=== PATIENT | female | born 2000 | race Hispanic/Latino ===

== ENCOUNTER 2023-01-06 08:57 | Emergency (ER) | payer OTHER, SELFPAY ==
[2023-01-06 09:49] VITALS: BP 118/72; PULSE 105; RESP 16; TEMP 37.1; O2SAT 96
[2023-01-06] MEDS: KETOROLAC 30 MG/ML VIAL (*BKC) IM (10:12)
[2023-01-06] MEDS: CLINDAMYCIN HCL 150 MG CAP 450 MG PO (10:12)
[2023-01-06] MEDS: oxyCODONE HCL (*CRX) 5 MG TAB IR PO (10:13)
--- NOTE | 2023-01-06 11:23 | ED.WOUNDLAC ---
HPI - Wound/Laceration General Chief Complaint: Wound/Laceration Stated Complaint: buttocks pain Time Seen by Provider: 01/06/23 09:25 History of Present Illness HPI narrative: 22-year-old female presenting with pain to her lower back/upper buttock, this is happened to her in the past which resolved after few days, but this was much worse. No fevers or chills. Painful to sit. Related Data Allergies Allergy/AdvReac Type Severity Reaction Status Date / Time No Known Allergies Allergy Verified 01/06/23 09:56 Review of Systems Review of Systems: CONST: No fever. HEENT: No sore throat C/V: No chest pain RESP: No cough GI: No nausea : No dysuria. M/S: No joint pain. SKIN: Red painful rash lower back NEURO: [No headache or focal numbness or weakness] PSYCH: [No depression] Exam Narrative: EXAMINATION OF ORGAN SYSTEMS/BODY AREAS: Constitutional: Vital signs per nursing GENERAL: Appears slightly uncomfortable HEAD: Normal with no signs of head trauma. EYES: EOMI, conjunctiva normal ENT: Hearing grossly intact LUNGS: Nonlabored breathing. HEART: [Regular rate and rhythm] ABD: [Soft], [nontender to palpation] EXT: Normal range of motion SKIN: Redness, fluctuance, tenderness midline sacral area NEURO: [Alert and oriented x 3. No gross focal sensory or strength deficits.] PSYCH: Normal affect Course Vital Signs Vital signs: Vital Signs Temperature 98.7 F 01/06/23 09:49 Pulse Rate 105 H 01/06/23 09:49 Respiratory Rate 16 01/06/23 09:49 Blood Pressure 118/72 01/06/23 09:49 Pulse Oximetry 96 01/06/23 09:49 Oxygen Delivery Room Air 01/06/23 09:49 Temperature 98.7 F 01/06/23 09:49 Pulse Rate 105 H 01/06/23 09:49 Respiratory Rate 16 01/06/23 09:49 Blood Pressure 118/72 01/06/23 09:49 Pulse Oximetry 96 01/06/23 09:49 Oxygen Delivery Room Air 01/06/23 09:49 MDM - Wound/Laceration MDM Narrative Medical decision making narrative: MEDICAL DECISION MAKING AND COURSE IN THE ED WITH INTERPRETATION/REVIEW OF DIAGNOSTIC STUDIES: Electronic medical record was reviewed. Patient presented to the ED with complaint of painful skin rash. Vitals [were within acceptable limits]. Physical exam revealed area of tenderness and induration consistent with pilonidal abscess. I did perform bedside ultrasound which confirmed a large amount of fluid. Incision and drainage was performed here, verbal consent obtained and risks/benefits explained. Skin was cleaned and [2% lidocaine] solution was injected to make a wheal for local anesthesia. A scalpel was used to make a 1cm longitudinal incision 1 cm lateral to midline, and very large amount of purulent discharge was expressed from the incision. There was [minimal] bleeding, patient tolerated procedure [well]. Wound was left open to allow for further drainage. [Patient was given clindamycin here and a course to continue at home.] On reevaluation, she is now feeling much much better. The patient is discharged home in stable condition with follow-up to general surgery. I have asked the patient to return to the emergency department for worsening pain, worsening and increasing size of skin infection, fevers/chills. The patient is instructed to follow up with [PCP] in [2] days. Patient verbalized understanding. Discharge Plan Discharge Clinical Impression: Pilonidal abscess Patient Disposition: Home, Self-Care Condition: Improved Instructions: Antibiotic Form, Pilonidal Cyst (ED), Abscess Incision and Drainage (DC) Additional Instructions: Please follow up with general surgeon; come back if you feel worse. Prescriptions: New clindamycin HCl 300 mg capsule 300 mg PO Q6H 5 Days Qty: 20 0RF Follow-up/Referrals: Tim,NADINE Parson [Primary Care Provider] - Gurinder Gruber DO [Physician] - 2 Days
== END 2023-01-06 11:31 | disposition home or self-care (01) ==
PROVIDERS: Emergency Provider Emergency Medicine; PCP Registered Nurse
DX: L05.01 Pilonidal cyst with abscess (principal)
CPT/HCPCS: 10060; 10080; 96372; 99283; A9270; J1885

== ENCOUNTER 2023-07-19 02:23 | Emergency (ER) | payer OTHER, SELFPAY ==
[2023-07-19] VITALS (7 sets, daily range): BP systolic 106–148; BP diastolic 69–80; PULSE 64–78; RESP 16–20; TEMP 36.4–37.1; O2SAT 98–100
--- NOTE | ~2023-07-19 | US_ITS ---
US right upper quadrant DATE: 07/19/2023 08:34 INDICATION: Right upper quadrant abdominal pain TECHNIQUE: Real-time imaging of liver, pancreas, gallbladder COMPARISON: None FINDINGS: The pancreas is obscured by bowel gas. The common bile duct measures 2.5 mm, normal. There is an approximately 7 mm gallstone. There is gallbladder wall thickening., The wall measuring u p to 3.5 mm thickness. The findings are suggestive of acute cholecystitis. Sonographic Ruggiero sign is negative. Further confirmation of acute cholecystitis isn't desired, consider radionuclide hepatobil iary scan. No hepatic space-occupying mass lesion is evident. Normal hepatopedal portal venous flow direction. IMPRESSION: Cholelithiasis and gallbladder wall thickening, suggesting possible acute cholecystitis Reviewed, dictated and finalized at [facility] Reviewed, dictated and finalized at [facility]
[2023-07-19 03:57] LABS: Basophils Percent Auto 0.4 % (0.2-1.2); Eosinophils Absolute Auto 0.1 K/mm3 (0-0.3); Eosinophils Percent Auto 1.4 % (0-4.4); Hematocrit 42.4 % (37.0-47.0); Hemoglobin 13.2 g/dL (12.0-15.0); Immature Granulocyte Absolute 0.03 K/mm3 (0.00-0.031); Immature Granulocyte Percent A 0.3 % (0-0.5); Lymphocytes Percent Auto 24.4 % (18.3-44.2); Mean Corpuscular HGB Conc 31.1 g/dl (32-36); Mean Corpuscular Hemoglobin 27.3 pg (26-34); Mean Corpuscular Volume 87.6 fl (80-100); Mean Platelet Volume 9.8 fl (7.4-10.4); Monocytes Absolute Auto 0.5 K/mm3 (0.1-0.6); Monocytes Percent Auto 5.1 % (2.6-8.5); Neutrophils Percent Auto 68.4 % (45.5-73.1); Platelet Count Result 267 k/mm3 (150-375); Red Blood Count 4.84 M/mm3 (4.2-5.4); Red Cell Distribution Width 12.5 % (11.5-14.5); White Blood Count 10.2 K/mm3 (4.5-10.0)
[2023-07-19 04:10] LABS: Alanine Aminotransferase 20 U/L (6-35); Albumin Level 4.4 g/dL (3.5-5.1); Alkaline Phosphatase 80 U/L (38-126); Anion Gap 8 mmol/L (8-16); Aspartate Amino Transferase 22 U/L (14-36); Bilirubin,Total 0.4 mg/dL (0.2-1.3); Blood Urea Nitrogen 12 mg/dL (7-17); Calcium 9.1 mg/dL (8.4-10.2); Carbon Dioxide 31 mmol/L (22-30); Chloride 101 mmol/L (98-107); Estimated CRCL calculation 101 ml/min; Estimated Glomerular Filt Rate > 60; Glucose 113 mg/dL (65-110); Potassium 3.9 mmol/L (3.4-5.0); Sodium 140 mmol/L (137-145)
[2023-07-19 04:44] LABS: Appearance Urine Clear (Clear); Bacteria Urine None Seen /hpf; Bilirubin Urine Negative (Negative); Blood Urine Negative (Negative); Color Urine Yellow (Yellow); Glucose Urine UA Negative (Negative); Ketones Urine Trace mg/dL (Negative); Leukocyte Esterase Ur Negative LEU/UL (Negative); Nitrate Urine Negative (Negative); Non Pathogenic Casts 0-2; Protein Urine Trace mg/dL (Negative); RBC Urine 0-2 /hpf (0-2); Specific Grav Ur 1.034 (1.001-1.035); Squamous Epithelial Cell Urine None seen /hpf (Few); WBC Urine 0-5 /hpf; pH Urine 6.5 (5.0-9.0)
[2023-07-19 05:36] LABS: Add Urine Microscopic? YES
--- NOTE | 2023-07-19 06:55 | ED.ABDPAIN ---
HPI - Abdominal Pain General Chief Complaint: Abdominal Pain Stated Complaint: abd pain Time Seen by Provider: 07/19/23 06:44 History of Present Illness HPI narrative: patient is a 22-year-old female who presents to the emergency department this evening complaining of mid epigastric and right upper quadrant abdominal pain. Patient states the pain has been ongoing for the past week and usually starts approximately 2 hours after she eats dinner. Patient admits that she has had similar pain in the past but not as bad as it has been this past week. She denies any nausea or vomiting, denies any chest pain nausea, denies any lower abdominal pain and denies any vaginal bleeding or spotting. She denies any chance of . Patient denies any chest pain, shortness of breath, dysuria, hematuria, constipation, diarrhea, melena, hematochezia, fevers or chills. Patient also denies any headaches, dizziness, lightheadedness, blurry visions, focal weakness, numbness and or tingling. There are no other modifying, alleviating, or precipitating factors at this time. Related Data Allergies Allergy/AdvReac Type Severity Reaction Status Date / Time No Known Allergies Allergy Verified 07/19/23 03:38 Review of Systems Review of Systems: All systems are reviewed and are negative unless stated otherwise in the HPI. Exam Narrative: General: Alert, awake, afebrile, in no acute distress. HEENT: PERRL, no rhinorrhea, no post nasal drip, oropharynx clear. Neck: Trachea midline, no JVD, no lymphadenopathy. Cardiovascular: Regular rate and rhythm, no murmurs, rubs or gallops, no peripheral edema. Respiratory: Clear to auscultation bilaterally, no tachypnea, no wheezing, no rhonchi, no rubs, no respiratory distress. Abdomen: Soft, mild tenderness to palpation over the midepigastric and right upper quadrant, nondistended, no rebound, no guarding, no peritoneal signs. Musculoskeletal: No joint swelling or deformity, normal muscle tone. Skin: No rashes or petechia, no signs of infection. Psychiatric: Alert and oriented, normal behavior and judgment for situation. Neurological: Alert and oriented to person, place, and time. Follows all commands. No focal deficits, speech is clear and fluent. Course Vital Signs Vital signs: Vital Signs Temperature 98.8 F 07/19/23 02:27 Pulse Rate 73 07/19/23 02:27 Respiratory Rate 20 07/19/23 02:27 Blood Pressure 148/76 H 07/19/23 02:27 Pulse Oximetry 98 07/19/23 02:27 Temperature 98.0 F 07/19/23 09:30 Pulse Rate 74 07/19/23 09:30 Respiratory Rate 16 07/19/23 09:30 Blood Pressure 112/72 07/19/23 09:30 Pulse Oximetry 100 07/19/23 09:30 MDM - Abdominal Pain MDM Narrative Medical decision making narrative: The patient was evaluated by myself in the emergency department. History is obtained from patient who is an independent historian and physical exam was performed. External medical records were reviewed at this time. IV was established and pertinent tests were ordered. Patient was administered a 1 L fluid bolus with normal saline. Laboratory results obtained revealing no acute process. Urinalysis revealed no evidence of urinary tract infection, 1+ ketones. Gallblader US was obtained and did reveal gallstones. US currently pending official radiology read. Patient was informed of this and that her pain is likely due to gallstones. She was informed that she will need to follow up with general surgery as she will likely require a cholecystectomy. Patient was provided with surgery follow up and instructed to call and make an appointment tomorrow. Repeat vital signs were reviewed and noted to be stable. Patient was provided with strict return precautions and instructed to return to the ED if any new or worsening symptoms develop. She was discharged in stable condition. Final Impression: 1. Acute intermittent RUQ pain 2. Symptomatic cholelithiasis Lab Data
[2023-07-19 07:06] LABS: Influenza A QL RT-PCR Negative (Negative); Influenza B QL RT-PCR Negative (Negative); SARS-CoV-2 RNA PCR Negative (Negative)
== END 2023-07-19 09:44 | disposition home or self-care (01) ==
PROVIDERS: Emergency Provider Emergency Medicine; PCP Registered Nurse
DX: K80.20 Calculus of gallbladder without cholecystitis without obstruction (principal); Z20.822 Contact with and (suspected) exposure to COVID-19
CPT/HCPCS: 36415; 76705; 80053; 81001; 81025; 85025; 87636; 99284

== ENCOUNTER 2025-06-20 15:28 | Emergency (ER) | payer OTHER, SELFPAY ==
--- NOTE | ~2025-06-20 | US_ITS ---
EXAMINATION: Ultrasound uterus OB, Limited: DATE: 06/20/2025. INDICATION: Vaginal bleeding. Pelvic pain. Positive test. TECHNIQUE: Transabdominal and transvaginal ultrasound with Doppler were obtained. COMPARISON: None previous of this . FINDINGS: Intrauterine uterine gestational sac is noted. Henning-rump length of 1.5 cm corresponds to gestational age of 7 weeks 6 days. heart rate at 1 67 bpm. Normal ovaries with normal perfusion. 1.8 cm corpus luteum cyst in the left ovary. No free fluid. IMPRESSION: 1. Intrauterine gestation with single live fetus, 7 weeks 6 days size. 2 heart rate at 167 bpm. 3. Normal adnexa. No free fluid. Reviewed, dictated and finalized at location [employer]
[2025-06-20 15:39] VITALS: BP 144/85; PULSE 101; RESP 18; TEMP 36.1; O2SAT 100
--- NOTE | 2025-06-20 16:42 | ED_ITS ---
HPI - General Chief complaint: Vaginal Bleeding <Yari Soto PA-C - Last Filed: 06/22/25 17:12> Stated complaint: VAG BLEEDING, +PREG <Yari Soto PA-C - Last Filed: 06/22/25 17:12> Time Seen by Provider: 06/20/25 16:43 <Yari Soto PA-C - Last Filed: 06/22/25 17:12> Focused HPI: This is a 24 year old female that presents to the ER for vaginal bleeding in early . Reports dark red blood. Reports low back pain. Unsure of LMP, possibly the end of February. Reports she has had an US, but it was too soon to see anything. GENERAL: Well-appearing, well-nourished, and in no acute distress. HEAD: Normocephalic, atraumatic. CHEST: Clear to auscultation. ?No respiratory distress. HEART: Regular rate and rhythm.? NEURO: ?Alert and oriented x3. Patient screened in triage and initial orders placed.? ?Additional care and disposition to be based upon?diagnostic testing and treatment. <Yari Soto PA-C - Last Filed: 06/22/25 17:12> Related Data Allergies/Adverse reactions: Allergies Allergy/AdvReac Type Severity Reaction Status Date / Time No Known Allergies Allergy Verified 06/20/25 15:29 <Yari Soto PA-C - Last Filed: 06/22/25 17:12> Review of Systems 2 Review of Systems: All systems reviewed & are unremarkable except as noted in HPI and below <Opal Aj APRN - Last Filed: 06/20/25 19:31> Exam 2 Narrative: GENERAL: Well appearing, well-nourished, non-toxic, in no acute distress. HEAD: Normocephalic, atraumatic. NECK: Supple. No adenopathy, no masses. RESPIRATORY: Airway patent, respirations nonlabored. Clear to auscultation bilaterally, no rales, rhonchi, wheezing. CARDIOVASCULAR: Regular rate and rhythm without murmurs, rubs, or gallops. Peripheral pulses 2+ and equal bilaterally. ABDOMINAL: Soft, mild generalized tenderness, nondistended, no hepatosplenomegaly. Normoactive BS. MUSCULOSKELETAL: Moves all extremities. Strength/ROM intact without gross deformities. SKIN: Warm, dry, normal color. No rashes. NEURO: A&O X3. Speech clear. Cranial nerves II-XII intact. No ataxic movements. PSYCHIATRIC: Appropriate mood and affect. Normal interaction. <Opal Aj APRN - Last Filed: 06/20/25 19:31> Course Vital Signs Vital signs: Vital Signs Temperature 97.0 F L 06/20/25 15:39 Pulse Rate 101 H 06/20/25 15:39 Respiratory Rate 18 06/20/25 15:39 Blood Pressure 144/85 H 06/20/25 15:39 Pulse Oximetry 100 06/20/25 15:39 Oxygen Delivery Room Air 06/20/25 15:39 Temperature 97.0 F L 06/20/25 15:39 Pulse Rate 89 06/20/25 19:59 Respiratory Rate 14 06/20/25 19:59 Blood Pressure 117/69 06/20/25 19:59 Pulse Oximetry 100 06/20/25 19:59 Oxygen Delivery Room Air 06/20/25 15:39 <Yari Soto PA-C - Last Filed: 06/22/25 17:12> Vital Signs Temperature 97.0 F L 06/20/25 15:39 Pulse Rate 101 H 06/20/25 15:39 Respiratory Rate 18 06/20/25 15:39 Blood Pressure 144/85 H 06/20/25 15:39 Pulse Oximetry 100 06/20/25 15:39 Oxygen Delivery Room Air 06/20/25 15:39 Temperature 97.0 F L 06/20/25 15:39 Pulse Rate 89 06/20/25 19:59 Respiratory Rate 14 06/20/25 19:59 Blood Pressure 117/69 06/20/25 19:59 Pulse Oximetry 100 06/20/25 19:59 Oxygen Delivery Room Air 06/20/25 15:39 <pOal Aj, RASHID - Last Filed: 06/20/25 19:31> MDM - OB/Uterine Contractions MDM Narrative Medical decision making narrative: This is a 24 year old female that presents to the ER for vaginal bleeding in early . Reports dark red blood. Reports low back pain. Unsure of LMP, possibly the end of February. Reports she has had an US, but it was too soon to see anything. Pt endorses intermittent abdominal cramping. She last had an in November of 2024. Pt reports she felt as though her BCP were making her crazy so she stopped taking them. She reports this is her second . Labs Ordered: CBC, CMP, beta hCG, PTT, INR, UA Imaging Ordered: Pelvic ultrasound Medications Ordered: None necessary Results: Patient's ultrasound indicated Intrauterine gestation with single live fetus, 7 weeks 6 days size. 2 heart rate at 167 bpm. 3. Normal adnexa. No free fluid. Diagnosis: Threatened miscarriage, vaginal bleeding during Consults: OBGYN (outpatient) Patient Education/Shared MDM: Results of lab work and imaging shared with patient. Patient strongly advised to maintain hydration status upon discharge and follow-up with an OBGYN as soon as possible. She will not be discharged home with any new prescriptions. Strict return precautions provided. Patient verbalized understanding and is in agreement with plan. Vital signs stable at time of discharge. All questions answered. <Opal Aj APRN - Last Filed: 06/20/25 19:31> Differential Diagnosis Differential diagnosis: Likely other (Threatened miscarriage, urinary tract infection, vaginal bleeding during , demise) <Opal Aj APRN - Last Filed: 06/20/25 19:31> Lab Data Attestation: I reviewed the patient's lab results. <Opal Aj APRN - Last Filed: 06/20/25 19:31> Result diagrams: 06/20/25 17:09 06/20/25 17:09 <Yari Soto PA-C - Last Filed: 06/22/25 17:12> Labs: Lab Results 06/20/25 06/20/25 Range/Units 17:09 18:42 WBC 11.3 H (4.5-10.0) K/mm3 RBC 4.37 (4.2-5.4) M/mm3 Hgb 12.5 (12.0-15.0) g/dL Hct 37.2 (37.0-47.0) % MCV 85.1 (80-100) fl MCH 28.6 (26-34) pg MCHC 33.6 (32-36) g/dl RDW 12.2 (11.5-14.5) % Plt Count 265 (150-375) k/mm3 MPV 9.2 (7.4-10.4) fl Immature Gran % (Auto) 0.3 (0-0.5) % Neut % (Auto) 68.1 (45.5-73.1) % Lymph % (Auto) 25.8 (18.3-44.2) % [place] % (Auto) 4.7 (2.6-8.5) % Eos % (Auto) 0.8 (0-4.4) % Baso % (Auto) 0.3 (0.2-1.2) % Lymph # (Auto) 2.92 (0.9-3.2) K/mm3 [place] # (Auto) 0.5 (0.1-0.6) K/mm3 Eos # (Auto) 0.1 (0-0.3) K/mm3 Baso # (Auto) 0.0 (0.0-0.1) K/mm3 Abs Immat Gran (auto) 0.03 (0.00-0.031) K/mm3 Absolute Neuts (auto) 7.7 H (1.3-6.7) K/mm3 Absolute Nucleated RBC 0.000 (0.0-0.012) K/mm3 Nucleated RBC % 0.0 (0.0-0.2) % PT 14.7 (11.1-14.7) Seconds INR 1.2 APTT 31.6 (22.3-36.8) Seconds Sodium 133 L (137-145) mmol/L Potassium 3.9 (3.4-5.0) mmol/L Chloride 101 (98-107) mmol/L Carbon Dioxide 27 (22-30) mmol/L Anion Gap 5 (4-12) mmol/L BUN 9 (7-17) mg/dL Creatinine 0.72 (0.7-1.0) mg/dL Estim Creat Clear Calc 125 ml/min Estimated GFR > 60 (59 - ) Glucose 139 H (65-110) mg/dL Calcium 9.0 (8.4-10.2) mg/dL Total Bilirubin 0.3 (0.2-1.3) mg/dL AST 19 (14-36) U/L ALT 16 (6-35) U/L Alkaline Phosphatase 63 (38-126) U/L Total Protein 7.2 (6.3-8.2) g/dL Albumin 4.0 (3.5-5.1) g/dL Beta HCG, Quant 91163.00 mIU/ML Urine Color Yellow (Yellow) Urine Appearance Cloudy H (Clear) Urine pH 6.0 (5.0-9.0) Ur Specific [place] 1.032 (1.001-1.035) Urine Protein Trace (Negative) mg/dL Urine Glucose (UA) 1+ H (Negative) mg/dL Urine Ketones Trace H (Negative) mg/dL Ur Blood (Man) Negative (Negative) Urine Nitrate Negative (Negative) Urine Bilirubin Negative (Negative) Urine Urobilinogen 1.0 (<2.0) mg/dL Add Ur Microanalysis Reviewed Leukocyte Esterase Rfl Negative (Negative) MUKUND/UL Urine RBC 11-20 H (0-2) /hpf Urine WBC 0-5 (0-3) /hpf Ur Squamous Epith Cells Occasional (Few) /hpf Urine Bacteria 2+ H /hpf Urine Casts 0-2 Blood Type O Positive Antibody Screen Negative Doses of RhIg Required 0 <Yari Soto PA-C - Last Filed: 06/22/25 17:12> Lab Results 06/20/25 06/20/25 Range/Units 17:09 18:42 WBC 11.3 H (4.5-10.0) K/mm3 RBC 4.37 (4.2-5.4) M/mm3 Hgb 12.5 (12.0-15.0) g/dL Hct 37.2 (37.0-47.0) % MCV 85.1 (80-100) fl MCH 28.6 (26-34) pg MCHC 33.6 (32-36) g/dl RDW 12.2 (11.5-14.5) % Plt Count 265 (150-375) k/mm3 MPV 9.2 (7.4-10.4) fl Immature Gran % (Auto) 0.3 (0-0.5) % Neut % (Auto) 68.1 (45.5-73.1) % Lymph % (Auto) 25.8 (18.3-44.2) % [place] % (Auto) 4.7 (2.6-8.5) % Eos % (Auto) 0.8 (0-4.4) % Baso % (Auto) 0.3 (0.2-1.2) % Lymph # (Auto) 2.92 (0.9-3.2) K/mm3 [place] # (Auto) 0.5 (0.1-0.6) K/mm3 Eos # (Auto) 0.1 (0-0.3) K/mm3 Baso # (Auto) 0.0 (0.0-0.1) K/mm3 Abs Immat Gran (auto) 0.03 (0.00-0.031) K/mm3 Absolute Neuts (auto) 7.7 H (1.3-6.7) K/mm3 Absolute Nucleated RBC 0.000 (0.0-0.012) K/mm3 Nucleated RBC % 0.0 (0.0-0.2) % PT 14.7 (11.1-14.7) Seconds INR 1.2 APTT 31.6 (22.3-36.8) Seconds Sodium 133 L (137-145) mmol/L Potassium 3.9 (3.4-5.0) mmol/L Chloride 101 (98-107) mmol/L Carbon Dioxide 27 (22-30) mmol/L Anion Gap 5 (4-12) mmol/L BUN 9 (7-17) mg/dL Creatinine 0.72 (0.7-1.0) mg/dL Estim Creat Clear Calc 125 ml/min Estimated GFR > 60 (59 - ) Glucose 139 H (65-110) mg/dL Calcium 9.0 (8.4-10.2) mg/dL Total Bilirubin 0.3 (0.2-1.3) mg/dL AST 19 (14-36) U/L ALT 16 (6-35) U/L Alkaline Phosphatase 63 (38-126) U/L Total Protein 7.2 (6.3-8.2) g/dL Albumin 4.0 (3.5-5.1) g/dL Beta HCG, Quant 85275.00 mIU/ML Urine Color Yellow (Yellow) Urine Appearance Cloudy H (Clear) Urine pH 6.0 (5.0-9.0) Ur Specific [place] 1.032 (1.001-1.035) Urine Protein Trace (Negative) mg/dL Urine Glucose (UA) 1+ H (Negative) mg/dL Urine Ketones Trace H (Negative) mg/dL Ur Blood (Man) Negative (Negative) Urine Nitrate Negative (Negative) Urine Bilirubin Negative (Negative) Urine Urobilinogen 1.0 (<2.0) mg/dL Add Ur Microanalysis Reviewed Leukocyte Esterase Rfl Negative (Negative) MUKUND/UL Urine RBC 11-20 H (0-2) /hpf Urine WBC 0-5 (0-3) /hpf Ur Squamous Epith Cells Occasional (Few) /hpf Urine Bacteria 2+ H /hpf Urine Casts 0-2 Blood Type O Positive Antibody Screen Negative Doses of RhIg Required 0 <Opal Aj APRN - Last Filed: 06/20/25 19:31> Imaging Data Attestation: I personally reviewed and interpreted this imaging study as follows: < Opal Aj APRN - Last Filed: 06/20/25 19:31> Radiologist's impression: Impressions Obstetrics Ultrasound 06/20/25 18:54 IMPRESSION: 1. Intrauterine gestation with single live fetus, 7 weeks 6 days size. 2 heart rate at 167 bpm. 3. Normal adnexa. No free fluid. <Opal Aj APRN - Last Filed: 06/20/25 19:31> Discharge Plan Discharge Clinical Impression: Threatened , Vaginal bleeding <Yari Soto PA-C - Last Filed: 06/22/25 17:12> Patient Disposition: Home <Yari Soto PA-C - Last Filed: 06/22/25 17:12> Condition: Stable <MARIELOS Franklin Last Filed: 06/22/25 17:12> Instructions: Antibiotic Form, Threatened Miscarriage (ED) <MARIELOS Franklin Last Filed: 06/22/25 17:12> Additional Instructions: Please return to the ER with any worsening symptoms. Follow-up with an OBGYN as soon as possible. Remember to drink lots of water. <Yari Soto PA-C - Last Filed: 06/22/25 17:12> Patient Language: Divehi <Yari Soto PA-C - Last Filed: 06/22/25 17:12> Prescriptions: No Action clindamycin HCl 300 mg capsule 300 mg PO Q6H 5 Days Qty: 20 0RF <Yari Soto PA-C - Last Filed: 06/22/25 17:12> Follow-up/Referrals: Laury Peter MD [Physician, LAB ANIMAL TECHNICIAN] Clifford,BRANDIE Gonzalez [Primary Care Provider, Unknown] <Yari Soto PA-C - Last Filed: 06/22/25 17:12> Stand Alone Forms: Work/School Release IP <Yari Soto PA-C - Last Filed: 06/22/25 17:12> Time of Disposition: 19:31 <Yari Soto PA-C - Last Filed: 06/22/25 17:12> 19:31 <Opal Aj APRN - Last Filed: 06/20/25 19:31>
--- OUTSIDE RECORDS SUMMARY | 2025-06-20 17:07 | XMS_ITS | Clinical Summary ---
Author Organization [facility] [address] [place] [address] Care Team Providers Care Supervisor Toy Assembly Name Role Phone Blank Dumont CROWN ASSEMBLY MACHINE OPERATOR-WARDROBE ASSISTANT Primary Care Pro vider Blank Dumont CROWN ASSEMBLY MACHINE OPERATOR-WARDROBE ASSISTANT Unavailable Source Comments [facility],non-owned Affiliates and Associated Physician Practices is amultiple site organization consisting of ambulatory clinics and hospital sitesin [place], [place], [place] and [place]. This disclosure is being madepursuant to the Care Everywhere program and may not contain all information available regarding this patient. Last updated 18.[facility] Allergies No known active allergies Medications * Be aware that medications may not be up to date on this document. Alwaysverify current medications with the patient. acetaminophen (TYLENOL) 325 MG tablet Take 2 Tabs by mouth every 4 hours as needed for Fever or Pain. Maximum allowable Acetaminophen amount = 4 doses per day 30 Tab 0 4 Active Additional Information Patient not taking.Reported on 11/24/2017 cetirizine (ZYRTEC) 10 MG tablet Take 1 tablet by mouth once daily 30 tablet 8 Active Additional Information Patient not taking.Reported on 01/17/2020 naproxen (NAPROSYN) 500 MG tablet Take 1 tablet by mouth 2 times daily 30 tablet 0 Active Active Problems Problem Noted Date Diagnosed Date Hypercholesterolemia 10/19/2014 Obesity 10/19/2014 Family History Medical History Relation Name Comments Diabetes Mother Stroke Paternal Grandfather fatal Relation Name Status Comments Mother Paternal Grandfather Social History Tobacco Use Types Packs/Day Years Used Date Smoking Tobacco: Never Smokeless Tobacco: Never Alcohol Use Standard Drinks/Week Comments No 0 (1 standard drink = 0.6 oz pur e alcohol) Comments Unknown Sex and Gender Information Value Date Recorded Sex Assigned at Not on file 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 Gender Identity Not on file Sexual Orientation Not on file Last Filed Vital Signs Vital Sign Reading Time Taken Comments Blood Pressure 120/78 01/17/2020 4:07 PM CDT Pulse 84 01/17/2020 4:07 PM CDT Temperature 37.1 C (98.8 F) 01/17/2020 4:07 PM CDT Respiratory Rate 16 01/17/2020 4:07 PM CDT Oxygen Saturation - - Inhaled Oxygen Concentration - - Weight 96.5 kg (212 lb 11.9 oz) 01/17/2020 4:07 PM CDT Height 172.7 cm (5' 8) 01/17/2020 4:07 PM CDT Body Mass Index 32.35 01/17/2020 4:07 PM CDT Plan of Treatment Health Maintenance Due Date Last Done Comments HIV SCREENING 2017 HPV VACCINE (1 - 3-dose series) 2017 CHLAMYDIA/GONORRHEA SCREENING 2018 MENINGOCOCCAL (Group B) VACC INE SHARED DECISION-MAKING (1 of 2 - Standard) 2018 HEPATITIS C SCREENING 12/24/2020 DTAP/TDAP/TD VACCINES (1 - Tdap) 2021 HEPATITIS B VACCINE (1 of 3 - 19+ 3-dose series) 2021 DEPRESSION SCREENING 07/27/2024 COVID-19 VACCINE (1 - 2024-2 6 season) 2025 INFLUENZA VACCINE (#1) 2025 ZOSTER VACCINE (1 of 2) 2052 HIB VACCINE Aged Out No longer eligi ble based on patient's age to complete this topic MENINGOCOCCAL GROUPS A/C/Y/W VACCINE Aged Out No longer eligible b ased on patient's age to complete this topic PNEUMOCOCCAL VACCINE Aged Out No long er eligible based on patient's age to complete this topic Insurance [facility] PLAN [id number] [place] [address] [employer] Care Teams Supervisor Toy Assembly Relationship Specialty Start Date End Date Blank Dumont APRN-CNP [address] [place] [phone] PCP - General 01/31/20 Blank Dumont APRN-CNP [address] [place] [phone] Nurse Practitioner 01/31/20
--- OUTSIDE RECORDS SUMMARY | 2025-06-20 17:07 | XMS_ITS | Clinical Summary ---
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 Gender Identity Not on file Sexual Orientation Not on file Plan of Treatment Health Maintenance Due Date Last Done Comments Hepatitis C Virus (HCV) Screening 2002 Meningococcal B Immunization (2 of 2 - Bexsero SCDM 2-dose series) 12/11/2020 06/13/2020 Influenza Immunization (#1) 03/27/202505/27, 06/27/2015, 06/28/2012 SARS-COV-2 Immunization ( season) 2025 Respiratory Syncytial Virus (RSV) Immunization (Adult) (1 - 1-dose 75+ series) 2077 Hepatitis B Immunization Completed 003, 03/07/2003, 2002 Hepatitis A Immunization Discontinued 01/05/2006, 04/27 Pneumococcal Immunization Combined Aged Out 01/05/2006, 07/07/2003, 05/08/2003, Additional history exists No longer eligible based on patient's age to complete this topic Measles Mumps Rubella (MMR) Immunization Discontinued 02/25/2007, 02/22/2007, 01/16/2004 Polio (IPV) Immunization Discontinued 007, 02/22/2007, 07/07/2003, Additional history exists Varicella Immunization Discontinued 7, 02/22/2007, 01/16/2004 DTaP/Tdap/Td Immunization Discontinued 2013, 02/25/2007, 02/22/2007, Additional history exists Human Papillomavirus (HPV) Immunization Completed 04/14/2014, 09/15/2012, 07/12/2012 TdaP Immunization Completed 04/14/2014 Meningococcal Immunization (ACWY) Completed 06/13/2020, 01/02/2017, 05/20/2010 Rotavirus Immunization Aged Out No lo nger eligible based on patient's age to complete this topic
[2025-06-20 17:18] LABS: Hematocrit 37.2 % (37.0-47.0); Hemoglobin 12.5 g/dL (12.0-15.0); Immature Granulocyte Percent A 0.3 % (0-0.5); Lymphocytes Absolute Auto 2.92 K/mm3 (0.9-3.2); Mean Corpuscular HGB Conc 33.6 g/dl (32-36); Mean Corpuscular Hemoglobin 28.6 pg (26-34); Mean Corpuscular Volume 85.1 fl (80-100); Nucleated Red Blood Cells Absolute Auto 0.000 K/mm3 (0.0-0.012); Nucleated Red Blood Cells Perc 0.0 % (0.0-0.2); Platelet Count Result 265 k/mm3 (150-375); Red Blood Count 4.37 M/mm3 (4.2-5.4); White Blood Count 11.3 K/mm3 (4.5-10.0)
[2025-06-20 17:28] LABS: Alanine Aminotransferase 16 U/L (6-35); Albumin Level 4.0 g/dL (3.5-5.1); Alkaline Phosphatase 63 U/L (38-126); Anion Gap 5 mmol/L (4-12); Aspartate Amino Transferase 19 U/L (14-36); Bilirubin,Total 0.3 mg/dL (0.2-1.3); Blood Urea Nitrogen 9 mg/dL (7-17); Calcium 9.0 mg/dL (8.4-10.2); Carbon Dioxide 27 mmol/L (22-30); Chloride 101 mmol/L (98-107); Estimated CRCL calculation 125 ml/min; Estimated Glomerular Filt Rate > 60; Glucose 139 mg/dL (65-110); Potassium 3.9 mmol/L (3.4-5.0); Sodium 133 mmol/L (137-145); Total Protein 7.2 g/dL (6.3-8.2)
[2025-06-20 17:29] LABS: INR 1.2; Prothrombin Time 14.7 Seconds (11.1-14.7)
[2025-06-20 17:30] LABS: Partial Thromboplastin Time 31.6 Seconds (22.3-36.8)
[2025-06-20 17:31] VITALS: BP 111/92; PULSE 83; RESP 16; O2SAT 100
[2025-06-20 18:00] VITALS: BP 112/90; PULSE 82; RESP 16; O2SAT 100
[2025-06-20 18:57] LABS: Add Urine Microscopic? YES; Appearance Urine Cloudy (Clear); Glucose Urine UA 1+ mg/dL (Negative); Leukocyte Esterase Ur Negative LEU/UL (Negative); Need Manual Microscopic Reviewed; Nitrate Urine Negative (Negative); Non Pathogenic Casts 0-2; Specific Grav Ur 1.032 (1.001-1.035)
[2025-06-20 19:59] VITALS: BP 117/69; PULSE 89; RESP 14; O2SAT 100
== END 2025-06-20 20:01 | disposition home or self-care (01) ==
PROVIDERS: Physician Assistant; Emergency Provider Registered Nurse; PCP Physician Assistant Medical
DX: O20.0 Threatened abortion (principal); Z3A.01 Less than 8 weeks gestation of pregnancy
CPT/HCPCS: 36415; 76801; 76817; 80053; 81001; 84702; 85025; 85461; 85610; 85730; 86850; 86900; 86901; 99284